=== PATIENT | female | born 1970 | race Two or more races ===

== ENCOUNTER → 2017-05-10 | Outpatient (CLI) | payer OTHER | END | disposition home or self-care (01) | LOC: CFH 08:45 | PROVIDERS: ATTEND Nurse Practitioner | DX: Z12.31 Encounter for screening mammogram for malignant neoplasm of breast (principal); Z80.3 Family history of malignant neoplasm of breast | CPT/HCPCS: 77063; 77067 ==

== ENCOUNTER 2017-12-10 07:21 | Emergency (ER) | payer OTHER ==
[~2017-12-10] VITALS: Ht 162.6 cm; Wt 62.8 kg
[2017-12-10] MEDS ORDERED: SODIUM CHLORIDE FLUSH 10ML SYR IVF ONE (08:30)
[2017-12-10] MEDS ORDERED: SODIUM CHLORIDE 0.9% 1,000ML IVBOLUS ONE (08:30)
[2017-12-10] MEDS ORDERED: ONDANSETRON 2MG/ML, 2ML IVPush ONE ×2 (08:30→13:00)
[2017-12-10] MEDS ORDERED: ONDANSETRON 2MG/ML, 2ML ONE ×2 (08:45→13:05)
[2017-12-10 09:30] LABS: BASOPHILS # (AUTO) 0.04 x10^3/uL (0-0.1); BASOPHILS % (AUTO) 0 % (0-1); EOSINOPHILS # (AUTO) 0.07 x10^3/uL (0-0.4); EOSINOPHILS % (AUTO) 0 % (1-7); LYMPHOCYTES # (AUTO) 1.08 x10^3/uL (1-3.4); LYMPHOCYTES % (AUTO) 6 % (22-44); MD NO; MEAN CORPUSCULAR HEMOGLOBIN 31.6 pg (27.0-34.8); MEAN CORPUSCULAR HGB CONC 34.5 g/dL (32.4-35.8); MEAN CORPUSCULAR VOLUME 91.6 fL (80-100); MEAN PLATELET VOLUME 7.8 fL (7.4-10.4); MONOCYTES # (AUTO) 0.56 x10^3/uL (0.2-0.8); MONOCYTES % (AUTO) 3 % (2-9); NEUTROPHILS # (AUTO) 15.14 x10^3/uL (1.8-6.8); NEUTROPHILS % (AUTO) 90 % (42-75); PLATELET COUNT 272 x10^3/uL (130-400); RED BLOOD COUNT 4.85 x10^6/uL (3.82-5.3); RED CELL DISTRIBUTION WIDTH 12.4 % (9.6-15.2)
[2017-12-10 09:34] LABS: INTERNATIONAL NORMALIZED RATIO 1.01 (0.93-1.1); PROTHROMBIN TIME 10.4 Seconds (9.6-11.5)
[2017-12-10 09:37] LABS: ALANINE AMINOTRANSFERASE 29 U/L (12-78); ALBUMIN 4.2 g/dL (3.4-5.0); ANION GAP 7 mmol/L (5-15); CALCIUM 8.8 mg/dL (8.5-10.1); CHLORIDE 109 mmol/L (98-107); CREATININE 0.72 mg/dL (0.55-1.02)
[2017-12-10 09:40] LABS: ALKALINE PHOSPHATASE 78 U/L (45-117); BILIRUBIN,TOTAL 0.8 mg/dL (0.2-1.0); TOTAL PROTEIN 7.9 g/dL (6.4-8.2)
[2017-12-10 09:55] LABS: HCG UR SG 1.033 (1.003-1.030); MICROSCOPIC AUTO
[2017-12-10 10:00] LABS: CULTURE INDICATED? NO
[2017-12-10] MEDS ORDERED: OMNIPAQUE 350 MG/ML, 100ML BOTTLE ONE ×2 (11:00→13:44)
[2017-12-10] MEDS ORDERED: HYDROmorphone 2 MG/ML, 1ML IVPush PRN (13:00)
[2017-12-10] MEDS ORDERED: METRONIDAZOLE PMX 500MG/100ML 100 ML IVPB ONE (13:00)
[2017-12-10] MEDS ORDERED: CIPROFLOXACIN/PMX 400MG/200ML 100 ML IVPB ONE (13:00)
[2017-12-10] MEDS ORDERED: CIPROFLOXACIN/PMX 400MG/200ML 200 ML ONE (13:06)
[2017-12-10] MEDS ORDERED: HYDROmorphone 2 MG/ML, 1ML ONE (13:07)
[2017-12-10] MEDS ORDERED: METRONIDAZOLE PMX 500MG/100ML 100 ML ONE (13:07)
[2017-12-10 15:22] VITALS: BP 116/72
== END 2017-12-10 15:24 | disposition home or self-care (01) ==
LOC: ED 08:38
DX: A09 Infectious gastroenteritis and colitis, unspecified (principal)
CPT/HCPCS: 36415; 74175; 74177; 80053; 81001; 81025; 83690; 85025; 85610; 87040; 93005; 96361; 96365; 96367; 96375; 96376; 99285; J0744; J1170; J2405; J7030; Q9967

== ENCOUNTER 2018-10-02 15:02 | Outpatient (CLI) | payer OTHER | END 2018-10-02 23:59 | disposition home or self-care (01) | LOC: RAD 15:02 | PROVIDERS: ATTEND Family Medicine | DX: J01.30 Acute sphenoidal sinusitis, unspecified (principal); J01.01 Acute recurrent maxillary sinusitis; R51 Headache; R50.9 Fever, unspecified | CPT/HCPCS: 70450; 70486; 71046 ==

== ENCOUNTER 2019-02-02 14:59 | Outpatient (CLI) | payer OTHER | END 2019-02-02 23:59 | disposition home or self-care (01) | LOC: CFH 14:59 | PROVIDERS: ATTEND Nurse Practitioner | DX: M50.322 Other cervical disc degeneration at C5-C6 level (principal); M48.02 Spinal stenosis, cervical region | CPT/HCPCS: 72141 ==

== ENCOUNTER → 2019-10-13 | Outpatient (CLI) | payer OTHER ==
[~2019-10-13] MED LIST: GADOTERATE 7.5 MMOL/15 ML SYR ONE
== END | disposition home or self-care (01) ==
LOC: RAD 10:09
PROVIDERS: ATTEND Neurological Surgery
DX: M25.551 Pain in right hip (principal); Z90.710 Acquired absence of both cervix and uterus
CPT/HCPCS: 72197; A9575

== ENCOUNTER 2019-10-29 09:26 | Inpatient (IN) | payer OTHER ==
[~2019-10-29] VITALS: Ht 162.6 cm; Wt 61.7 kg
--- NOTE | 2019-10-29 10:31 | NUR ---
REGULATORY PRODUCT MANAGER: PT TO ROOM FROM LOBBY VIA WHEELCHAIR. BRANDON
[2019-10-29 10:40] LABS: BASOPHILS # (AUTO) 0.02 x10^3/uL (0-0.1); BASOPHILS % (AUTO) 0 % (0-1); EOSINOPHILS # (AUTO) 0.11 x10^3/uL (0-0.4); EOSINOPHILS % (AUTO) 2 % (1-7); LYMPHOCYTES % (AUTO) 23 % (22-44); MD NO; MEAN CORPUSCULAR HEMOGLOBIN 31.8 pg (27.0-34.8); MEAN CORPUSCULAR HGB CONC 34.5 g/dL (32.4-35.8); MEAN CORPUSCULAR VOLUME 91.9 fL (80-100); MEAN PLATELET VOLUME 8.1 fL (7.4-10.4); MONOCYTES # (AUTO) 0.36 x10^3/uL (0.2-0.8); MONOCYTES % (AUTO) 5 % (2-9); NEUTROPHILS # (AUTO) 4.76 x10^3/uL (1.8-6.8); NEUTROPHILS % (AUTO) 70 % (42-75); PLATELET COUNT 239 x10^3/uL (130-400); RED BLOOD COUNT 4.81 x10^6/uL (3.82-5.3); RED CELL DISTRIBUTION WIDTH 12.3 % (9.6-15.2)
[2019-10-29 10:49] LABS: ALANINE AMINOTRANSFERASE 36 U/L (12-78); ALBUMIN 4.1 g/dL (3.4-5.0); ANION GAP 4 mmol/L (5-15); C-REACTIVE PROTEIN, QUANT 0.14 mg/dL (0.02-0.49); CALCIUM 9.5 mg/dL (8.5-10.1); CHLORIDE 110 mmol/L (98-107); CREATININE 0.65 mg/dL (0.55-1.02)
[2019-10-29 10:51] LABS: ALKALINE PHOSPHATASE 91 U/L (45-117); BILIRUBIN,TOTAL 0.6 mg/dL (0.2-1.0); TOTAL PROTEIN 7.4 g/dL (6.4-8.2)
[2019-10-29 11:18] LABS: MICROSCOPIC NOT IND
--- NOTE | 2019-10-29 11:18 | NUR ---
to and from bathroom for ua gait shuffling, slow, standby assist. pain relieved by laying down. sts decr/different sensation in lowers bilat, occasional tingling when sitting too long. epidural 2 weeks ago w improvement. told by lisa to come to ed. new bladder incontinence at home. sts only able to crawl last night. call manfred vss. as
[2019-10-29 11:33] LABS: HCT (SEDRATE) 44.2 % (34.6-47.8)
--- NOTE | 2019-10-29 11:55 | NUR ---
piv est plan for mri pain controlled as long as lying down nad. as
[2019-10-29] MEDS ORDERED: SODIUM CHLORIDE FLUSH 10ML SYR IVF ONE (12:00)
[2019-10-29] MEDS ORDERED: GADOTERATE 7.5 MMOL/15 ML SYR ONE (12:20)
--- NOTE | 2019-10-29 12:25 | NUR ---
pt to mri. as
--- NOTE | 2019-10-29 12:54 | NUR ---
REPORT RECEIVED, CARE ASSUMED
--- NOTE | 2019-10-29 13:00 | NUR ---
CONTACT WITH PT. PT LAYING ON GURNEY. NO ACUTE DISTRESS NOTED. "FEEL BETTER LAYING DOWN" PT AWARE OF WAITING FOR MD RE-EVAL. NO NEEDS EXPRESSED AT THIS TIME.
--- NOTE | 2019-10-29 13:05 | NUR ---
REPORT TO TORRES TOVAR.
--- NOTE | 2019-10-29 13:56 | NUR ---
PT TO MRI VIA [facility].
--- NOTE | 2019-10-29 15:12 | NUR ---
PT RETURN TO ROOM, STATES "IT WAS LONG AND IT HURT" DISCUSSED DR STAUFFER [facility] HAS BEEN IN ER TO EVAL HER. UNDERSTANDING VERBALIZED. DR STAUFFER NOTIFED OF PT RETURN TO ROOM. NO NEEDS EXPRESSED BY PT AT THIS TIME.
--- NOTE | 2019-10-29 16:25 | NUR ---
REPORT CALLED TO RADHA TOVAR. POC DISCUSSED.
[2019-10-29 16:55] LABS: INTERNATIONAL NORMALIZED RATIO 0.99 (0.93-1.1); PROTHROMBIN TIME 10.2 Seconds (9.6-11.5)
[2019-10-29] MEDS ORDERED: METHOCARBAMOL 500 MG TABLET PO PRN (17:00)
[2019-10-29] MEDS ORDERED: ACETAMINOPHEN 325 MG TABLET PO PRN (17:00)
[2019-10-29] MEDS ORDERED: BISACODYL 10 MG SUPP PR PRN (17:00)
[2019-10-29] MEDS ORDERED: METOCLOPRAMIDE 5 MG/ML, 2ML IVPush PRN (17:00)
[2019-10-29] MEDS ORDERED: hydrALAzine 20 MG/ML, 1ML IVPush PRN (17:00)
[2019-10-29] MEDS ORDERED: ONDANSETRON ODT 4 MG PO PRN (17:00)
[2019-10-29] MEDS ORDERED: OXYcodone IR 5MG TABLET PO PRN (17:00)
[2019-10-29] MEDS ORDERED: morphine SULFATE 10 MG/ML, 1ML IVPush PRN (17:00)
[2019-10-29] MEDS ORDERED: POLYETHYLENE GLYCOL 17 GM PACKET PO PRN (17:00)
[2019-10-29 17:07] VITALS: BP 120/79
[2019-10-29] MEDS: LACTATED RINGERS 1,000 ML IV SCH (18:00)
[2019-10-29 18:35] VITALS: BP 125/83
[2019-10-29] MEDS ORDERED: GABA300S PO (18:58)
[2019-10-29] MEDS: FAMOTIDINE 20 MG TABLET PO SCH (20:43)
[2019-10-29] MEDS: ONDANSETRON 2MG/ML, 2ML IVPush PRN (20:43)
[2019-10-29] MEDS ORDERED: PROP10TA51 PO (23:51)
[2019-10-30 00:35] VITALS: BP 102/65
[2019-10-30] MEDS: ONDANSETRON 2MG/ML, 2ML IVPush PRN (04:14)
[2019-10-30 04:39] LABS: BASOPHILS # (AUTO) 0.03 x10^3/uL (0-0.1); BASOPHILS % (AUTO) 1 % (0-1); EOSINOPHILS # (AUTO) 0.19 x10^3/uL (0-0.4); EOSINOPHILS % (AUTO) 3 % (1-7); LYMPHOCYTES # (AUTO) 2.26 x10^3/uL (1-3.4); LYMPHOCYTES % (AUTO) 37 % (22-44); MD NO; MEAN CORPUSCULAR HEMOGLOBIN 31.6 pg (27.0-34.8); MEAN CORPUSCULAR HGB CONC 34.6 g/dL (32.4-35.8); MEAN CORPUSCULAR VOLUME 91.4 fL (80-100); MEAN PLATELET VOLUME 8.4 fL (7.4-10.4); MONOCYTES # (AUTO) 0.42 x10^3/uL (0.2-0.8); MONOCYTES % (AUTO) 7 % (2-9); NEUTROPHILS # (AUTO) 3.17 x10^3/uL (1.8-6.8); NEUTROPHILS % (AUTO) 52 % (42-75); PLATELET COUNT 206 x10^3/uL (130-400); RED BLOOD COUNT 4.23 x10^6/uL (3.82-5.3); RED CELL DISTRIBUTION WIDTH 12.1 % (9.6-15.2)
[2019-10-30 04:45] LABS: ALBUMIN 3.1 g/dL (3.4-5.0); ANION GAP 4 mmol/L (5-15); CALCIUM 8.6 mg/dL (8.5-10.1); CHLORIDE 109 mmol/L (98-107)
[2019-10-30 04:48] LABS: ALANINE AMINOTRANSFERASE 23 U/L (12-78); ALKALINE PHOSPHATASE 77 U/L (45-117); BILIRUBIN,TOTAL 0.4 mg/dL (0.2-1.0); CREATININE 0.68 mg/dL (0.55-1.02)
[2019-10-30] MEDS: LACTATED RINGERS 1,000 ML IV SCH ×2 (05:45→19:40)
[2019-10-30 06:55] VITALS: BP 102/69
[2019-10-30] MEDS: FAMOTIDINE 20 MG TABLET PO SCH ×2 (07:38→21:41)
[2019-10-30] MEDS ORDERED: SENNA/DOCUSATE TABLET PO SCH (09:00)
[2019-10-30 12:45] VITALS: BP 99/65
[2019-10-30] MEDS ORDERED: EPHEDRINE 50 MG/ML, 1ML IVPush PRN (15:30)
[2019-10-30] MEDS ORDERED: hydrALAzine 20 MG/ML, 1ML IV PRN (15:30)
[2019-10-30] MEDS ORDERED: FENTANYL PF 100 MCG/2ML IV PRN (15:30)
[2019-10-30] MEDS ORDERED: OXYcodone 5 MG/5 ML ORAL.SOL UDC PO PRN (15:30)
[2019-10-30] MEDS ORDERED: PROMETHAZINE 25 MG/ML, 1ML IVPush PRN (15:30)
[2019-10-30] MEDS ORDERED: MEPERIDINE/PF 25MG/0.5ML IVPush PRN (15:30)
[2019-10-30] MEDS ORDERED: ONDANSETRON 2MG/ML, 2ML IVPush PRN (15:30)
[2019-10-30] MEDS ORDERED: LABETALOL 5MG/ML, 20ML IV PRN (15:30)
[2019-10-30] MEDS ORDERED: BUPIVACAINE/PF 0.25% ONE (16:06)
[2019-10-30] MEDS ORDERED: BACITRACIN 50,000 UNIT ONE (16:07)
[2019-10-30] MEDS ORDERED: EPINEPHRINE 1 MG/ML, 1ML ONE (16:07)
[2019-10-30] MEDS ORDERED: FENTANYL PF 250 MCG/5ML ONE (16:08)
[2019-10-30] MEDS ORDERED: MIDAZOLAM 1 MG/ML, 2ML ONE (16:08)
[2019-10-30] MEDS ORDERED: KETOROLAC 30 MG/1 ML ONE (17:44)
[2019-10-30] MEDS ORDERED: LIDOCAINE-MPF 2% ,5ML ONE (17:44)
[2019-10-30] MEDS ORDERED: EPHEDRINE 50 MG/ML, 1ML ONE (18:36)
[2019-10-30] MEDS ORDERED: CEFAZOLIN 1,000 MG ONE (18:37)
[2019-10-30] MEDS ORDERED: PROPOFOL 10 MG/ML, 20ML ONE (18:37)
[2019-10-30] MEDS ORDERED: ONDANSETRON 2MG/ML, 2ML ONE (18:37)
[2019-10-30] MEDS ORDERED: SUCCINYLCHOLINE 20 MG/ML, 10ML ONE (18:37)
[2019-10-30] MEDS ORDERED: DEXAMETHASONE 4 MG/ML, 1ML ONE (18:37)
[2019-10-30] MEDS ORDERED: VANCOMYCIN 1,000 MG ONE (18:52)
[2019-10-30] MEDS ORDERED: VANCOMYCIN 1,000 MG IVPush ONE (18:53)
[2019-10-30] MEDS ORDERED: PROMETHAZINE 25 MG/ML, 1ML ONE (19:23)
[2019-10-30] MEDS ORDERED: FENTANYL PF 100 MCG/2ML ONE (19:23)
[2019-10-30] MEDS ORDERED: HYDROmorphone 1 MG/ML, 1ML INJ ONE (19:23)
[2019-10-30] MEDS: HYDROmorphone 1 MG/ML, 1ML INJ IVPush PRN ×2 (19:42→19:50)
[2019-10-30 20:45] VITALS: BP 109/73
[2019-10-30] MEDS ORDERED: DIPHENHYDRAMINE 25 MG CAPSULE PO PRN (21:00)
[2019-10-30] MEDS ORDERED: CEFAZOLIN PMX 1GM/50ML 50 ML IVPB SCH (21:00)
[2019-10-30] MEDS ORDERED: METHOCARBAMOL 1,000 MG in DEXTROSE 5% 100 ML IV ONE (21:00)
[2019-10-30] MEDS ORDERED: METOCLOPRAMIDE 10MG TABLET PO PRN (21:30)
[2019-10-30] MEDS ORDERED: DIPHENHYDRAMINE 50 MG/ML, 1ML IV PRN (21:30)
[2019-10-30] MEDS ORDERED: BISACODYL 10 MG SUPP PR PRN (21:30)
[2019-10-30] MEDS: DEXAMETHASONE 4 MG TABLET PO SCH (21:30)
[2019-10-30] MEDS ORDERED: POLYETHYLENE GLYCOL 17 GM PACKET PO PRN (21:30)
[2019-10-30] MEDS: NS + 20MEQ KCL 1,000 ML IV SCH (21:41)
[2019-10-30] MEDS: DEXAMETHASONE 4 MG/ML, 1ML IVPush SCH (21:42)
[2019-10-31] VITALS (9 sets, daily range): BP systolic 81–112; BP diastolic 57–74
[2019-10-31] MEDS: DEXAMETHASONE 4 MG TABLET PO SCH ×3 (00:24→15:30)
[2019-10-31] MEDS: OXYcodone IR 5MG TABLET PO PRN ×4 (01:38→21:40)
[2019-10-31] MEDS: CEFAZOLIN PMX 1GM/50ML 50 ML IVPB SCH ×2 (03:29→13:30)
[2019-10-31] MEDS: DEXAMETHASONE 4 MG/ML, 1ML IVPush SCH ×3 (03:29→18:13)
[2019-10-31] MEDS: NS + 20MEQ KCL 1,000 ML IV SCH (04:23)
[2019-10-31] MEDS: LACTATED RINGERS 1,000 ML IV SCH (04:41)
[2019-10-31] MEDS: METHOCARBAMOL 750 MG in DEXTROSE 5% 100 ML IV SCH ×2 (05:13→18:11)
[2019-10-31 05:16] LABS: ANION GAP 5 mmol/L (5-15); CALCIUM 9.5 mg/dL (8.5-10.1); CHLORIDE 109 mmol/L (98-107)
[2019-10-31 05:37] LABS: BASOPHILS % (AUTO) 0 % (0-1); EOSINOPHILS # (AUTO) 0.08 x10^3/uL (0-0.4); EOSINOPHILS % (AUTO) 1 % (1-7); LYMPHOCYTES # (AUTO) 0.52 x10^3/uL (1-3.4); LYMPHOCYTES % (AUTO) 5 % (22-44); MD NO; MEAN CORPUSCULAR HEMOGLOBIN 31.1 pg (27.0-34.8); MEAN CORPUSCULAR HGB CONC 33.7 g/dL (32.4-35.8); MEAN CORPUSCULAR VOLUME 92.3 fL (80-100); MEAN PLATELET VOLUME 8.2 fL (7.4-10.4); MONOCYTES # (AUTO) 0.11 x10^3/uL (0.2-0.8); MONOCYTES % (AUTO) 1 % (2-9); NEUTROPHILS # (AUTO) 9.07 x10^3/uL (1.8-6.8); NEUTROPHILS % (AUTO) 93 % (42-75); PLATELET COUNT 219 x10^3/uL (130-400); RED BLOOD COUNT 4.08 x10^6/uL (3.82-5.3); RED CELL DISTRIBUTION WIDTH 12.3 % (9.6-15.2)
[2019-10-31] MEDS: SODIUM CHLORIDE 0.9% 500 ML IV SCH ×2 (08:00→13:00)
[2019-10-31] MEDS: FAMOTIDINE 20 MG TABLET PO SCH ×2 (08:30→21:40)
[2019-10-31] MEDS: GABAPENTIN 300 MG CAPSULE PO SCH ×3 (08:36→21:39)
[2019-10-31] MEDS ORDERED: PROPRANOLOL 20 MG TABLET PO SCH (09:00)
[2019-10-31] MEDS ORDERED: SODIUM CHLORIDE 0.9% 500 ML IV ONE ×3 (11:30)
[2019-11-01] MEDS: METHOCARBAMOL 750 MG in DEXTROSE 5% 100 ML IV SCH ×3 (01:54→18:16)
[2019-11-01] MEDS: OXYcodone IR 5MG TABLET PO PRN ×5 (01:54→18:17)
[2019-11-01 01:57] VITALS: BP 108/67
[2019-11-01 04:20] LABS: BASOPHILS # (AUTO) 0.02 x10^3/uL (0-0.1); BASOPHILS % (AUTO) 0 % (0-1); EOSINOPHILS % (AUTO) 0 % (1-7); LYMPHOCYTES % (AUTO) 9 % (22-44); MD NO; MEAN CORPUSCULAR HEMOGLOBIN 31.1 pg (27.0-34.8); MEAN CORPUSCULAR HGB CONC 33.5 g/dL (32.4-35.8); MEAN CORPUSCULAR VOLUME 92.8 fL (80-100); MEAN PLATELET VOLUME 8.1 fL (7.4-10.4); MONOCYTES # (AUTO) 0.63 x10^3/uL (0.2-0.8); MONOCYTES % (AUTO) 4 % (2-9); NEUTROPHILS # (AUTO) 14.33 x10^3/uL (1.8-6.8); NEUTROPHILS % (AUTO) 87 % (42-75); PLATELET COUNT 217 x10^3/uL (130-400); RED BLOOD COUNT 3.86 x10^6/uL (3.82-5.3); RED CELL DISTRIBUTION WIDTH 12.2 % (9.6-15.2)
[2019-11-01 04:33] LABS: ANION GAP 4 mmol/L (5-15); CALCIUM 8.7 mg/dL (8.5-10.1); CHLORIDE 109 mmol/L (98-107)
[2019-11-01 04:34] LABS: CREATININE 0.66 mg/dL (0.55-1.02)
[2019-11-01 07:57] VITALS: BP 97/63
[2019-11-01] MEDS: GABAPENTIN 300 MG CAPSULE PO SCH ×3 (08:25→20:56)
[2019-11-01] MEDS: FAMOTIDINE 20 MG TABLET PO SCH ×2 (08:25→20:56)
[2019-11-01 10:56] VITALS: BP 97/57
[2019-11-01 12:59] VITALS: BP 105/61
[2019-11-01] MEDS: SENNA/DOCUSATE TABLET PO PRN (18:17)
[2019-11-01 19:35] VITALS: BP 93/59
[2019-11-02] MEDS: OXYcodone IR 5MG TABLET PO PRN ×6 (00:15→22:03)
[2019-11-02 01:08] VITALS: BP 98/62
[2019-11-02] MEDS: METHOCARBAMOL 750 MG in DEXTROSE 5% 100 ML IV SCH (01:52)
[2019-11-02 07:23] VITALS: BP 95/67
[2019-11-02 08:34] LABS: MEAN CORPUSCULAR HEMOGLOBIN 31.3 pg (27.0-34.8); MEAN CORPUSCULAR HGB CONC 33.7 g/dL (32.4-35.8); MEAN CORPUSCULAR VOLUME 92.9 fL (80-100); MEAN PLATELET VOLUME 7.9 fL (7.4-10.4); PLATELET COUNT 223 x10^3/uL (130-400); RED BLOOD COUNT 4.15 x10^6/uL (3.82-5.3); RED CELL DISTRIBUTION WIDTH 12.5 % (9.6-15.2)
[2019-11-02 08:36] LABS: ALBUMIN 3.1 g/dL (3.4-5.0); ANION GAP 4 mmol/L (5-15); CALCIUM 8.8 mg/dL (8.5-10.1); CHLORIDE 104 mmol/L (98-107)
[2019-11-02 08:40] LABS: ALANINE AMINOTRANSFERASE 34 U/L (12-78); ALKALINE PHOSPHATASE 82 U/L (45-117); BILIRUBIN,TOTAL 0.5 mg/dL (0.2-1.0); CREATININE 0.58 mg/dL (0.55-1.02); TOTAL PROTEIN 6.2 g/dL (6.4-8.2)
[2019-11-02] MEDS: GABAPENTIN 300 MG CAPSULE PO SCH ×3 (09:37→20:16)
[2019-11-02] MEDS: FAMOTIDINE 20 MG TABLET PO SCH ×2 (09:37→20:16)
[2019-11-02 09:46] LABS: BASOPHILS # (AUTO) 0.04 x10^3/uL (0-0.1); BASOPHILS % (AUTO) 0 % (0-1); EOSINOPHILS # (AUTO) 0.09 x10^3/uL (0-0.4); EOSINOPHILS % (AUTO) 1 % (1-7); LYMPHOCYTES # (AUTO) 2.98 x10^3/uL (1-3.4); LYMPHOCYTES % (AUTO) 32 % (22-44); MD SCAN; MONOCYTES # (AUTO) 0.79 x10^3/uL (0.2-0.8); MONOCYTES % (AUTO) 8 % (2-9); NEUTROPHILS # (AUTO) 5.53 x10^3/uL (1.8-6.8); NEUTROPHILS % (AUTO) 59 % (42-75)
[2019-11-02] MEDS: ONDANSETRON 2MG/ML, 2ML IV PRN (13:37)
[2019-11-02 13:49] VITALS: BP 92/56
[2019-11-02] MEDS ORDERED: METHOCARBAMOL 500 MG TABLET ONE (14:12)
[2019-11-02 19:42] VITALS: BP 92/55
[2019-11-02] MEDS: METHOCARBAMOL 500 MG TABLET PO PRN (20:16)
[2019-11-02] MEDS: SENNA/DOCUSATE TABLET PO PRN (20:16)
[2019-11-02] MEDS ORDERED: METHOCARBAMOL 500 MG TABLET PO PRN (21:30)
[2019-11-03 00:47] VITALS: BP 99/65
[2019-11-03] MEDS: METHOCARBAMOL 500 MG TABLET PO PRN ×2 (04:45→15:40)
[2019-11-03 07:13] VITALS: BP 99/67
[2019-11-03] MEDS: OXYcodone IR 5MG TABLET PO PRN ×3 (07:42→15:40)
[2019-11-03] MEDS: FAMOTIDINE 20 MG TABLET PO SCH (08:00)
[2019-11-03] MEDS: GABAPENTIN 300 MG CAPSULE PO SCH ×2 (08:00→15:40)
[2019-11-03 12:48] VITALS: BP 101/65
[2019-11-03] MEDS: ONDANSETRON 2MG/ML, 2ML IV PRN (13:24)
== END 2019-11-03 16:06 | disposition home or self-care (01) | DRG 520 ==
LOC: ED 10:16 → SUATTDRO 14:18 → 4NE 16:32 → ED 16:32 → 4NE 16:41 → 4WST 10-31 14:24
PROVIDERS: ADMIT Internal Medicine; ATTEND Internal Medicine
PROC: 01NB0ZZ Release Lumbar Nerve, Open Approach (ICD-10-PCS; 2019-10-30)
PROC: 00BY0ZZ Excision of Lumbar Spinal Cord, Open Approach (ICD-10-PCS; principal; 2019-10-30 17:30)
DX: M48.061 Spinal stenosis, lumbar region without neurogenic claudication (principal); E03.9 Hypothyroidism, unspecified; E53.8 Deficiency of other specified B group vitamins; E55.9 Vitamin D deficiency, unspecified; I95.81 Postprocedural hypotension; J45.909 Unspecified asthma, uncomplicated; M48.02 Spinal stenosis, cervical region; M51.16 Intervertebral disc disorders with radiculopathy, lumbar region; M71.30 Other bursal cyst, unspecified site; M79.7 Fibromyalgia; R32 Unspecified urinary incontinence; Z79.899 Other long term (current) drug therapy; Z90.710 Acquired absence of both cervix and uterus; Z20.828 Contact with and (suspected) exposure to other viral communicable diseases; Z88.6 Allergy status to analgesic agent; Z88.8 Allergy status to other drugs, medicaments and biological substances
CPT/HCPCS: 36415; 72100; J3490; 71045; 72141; 72146; 72158; 80048; 80053; 81003; 81025; 82306; 82607; 83735; 84443; 85025; 85610; 85651; 85730; 86140; 86850; 86900; 87015; 87070; 87075; 87102; 87116; 87205; 87206; 87635; 88304; 88305; 88311; 93005; 93306; 93880; G0378; J0171; J0690; J1100; J1170; J1885; J2250; J2405; J2550; J2704; J3010; J3370; J3480; A9575; J0330; J1200; J2270; J2800; J7040; J7120

== ENCOUNTER 2020-02-11 13:55 | Emergency (ER) | payer OTHER ==
[~2020-02-11] VITALS: Ht 162.6 cm; Wt 57.9 kg
[~2020-02-11 13:55] MED LIST changes: +GABA300S PO; -GADOTERATE 7.5 MMOL/15 ML SYR ONE; +PROP10TA51 PO
[2020-02-11 14:59] LABS: BASOPHILS % (AUTO) 0 % (0-1); EOSINOPHILS % (AUTO) 1 % (1-7); LYMPHOCYTES % (AUTO) 30 % (22-44); MEAN CORPUSCULAR HEMOGLOBIN 31.4 pg (27.0-34.8); MEAN CORPUSCULAR HGB CONC 34.7 g/dL (32.4-35.8); MEAN PLATELET VOLUME 7.8 fL (7.4-10.4); MONOCYTES % (AUTO) 6 % (2-9); NEUTROPHILS % (AUTO) 63 % (42-75); PLATELET COUNT 259 x10^3/uL (130-400); RED BLOOD COUNT 5.26 x10^6/uL (3.82-5.3)
--- NOTE | 2020-02-11 15:00 | NUR ---
Pt states she's fainted 3 times in the last 2 days. Twice yesterday and once today. Pt states yesterday she hit her head when she fainted, has been mildly nauseous since. Pt states mild BLISS as well. Pt states she's under significant stress from work and personal life. Pt connected to all monitors, NADN, call light in reach.
[2020-02-11 15:06] LABS: ALANINE AMINOTRANSFERASE 54 U/L (12-78); ALBUMIN 4.7 g/dL (3.4-5.0); ANION GAP 5 mmol/L (5-15); CHLORIDE 106 mmol/L (98-107); CREATININE 0.81 mg/dL (0.55-1.02)
[2020-02-11 15:14] LABS: MD NO
[2020-02-11 15:16] LABS: ALKALINE PHOSPHATASE 98 U/L (45-117); BILIRUBIN,TOTAL 0.8 mg/dL (0.2-1.0); TOTAL PROTEIN 8.4 g/dL (6.4-8.2)
--- NOTE | 2020-02-11 15:19 | NUR ---
Pt to and from imaging.
--- NOTE | 2020-02-11 16:14 | NUR ---
Pt remains in bed, condition unchanged.
--- NOTE | 2020-02-11 16:37 | NUR ---
ERP back to bedside to update pt on POC.
[2020-02-11 16:46] VITALS: BP 122/81
== END 2020-02-11 16:54 | disposition home or self-care (01) ==
LOC: ED 16:30
DX: S09.90XA Unspecified injury of head, initial encounter (principal); R55 Syncope and collapse; I49.3 Ventricular premature depolarization; R00.0 Tachycardia, unspecified; I51.7 Cardiomegaly; E03.9 Hypothyroidism, unspecified; J45.909 Unspecified asthma, uncomplicated; X58.XXXA Exposure to other specified factors, initial encounter; Y93.89 Activity, other specified; Y92.89 Other specified places as the place of occurrence of the external cause; Y99.8 Other external cause status
CPT/HCPCS: 36415; 70450; 71045; 80053; 83735; 84443; 85025; 85379; 93005; 99285

== ENCOUNTER → 2020-03-11 | Outpatient (CLI) | payer OTHER ==
[~2020-03-11] MED LIST changes: +GADOTERATE 5 MMOL/10 ML VIAL ONE
== END | disposition home or self-care (01) ==
LOC: CFH 08:27
PROVIDERS: ATTEND Registered Nurse Registered Nurse First Assistant
DX: M51.16 Intervertebral disc disorders with radiculopathy, lumbar region (principal); M47.26 Other spondylosis with radiculopathy, lumbar region; M48.061 Spinal stenosis, lumbar region without neurogenic claudication
CPT/HCPCS: 72100; 72158; A9575

== ENCOUNTER → 2020-03-31 | Outpatient (CLI) | payer OTHER ==
[~2020-03-31] MED LIST changes: -GADOTERATE 5 MMOL/10 ML VIAL ONE
== END | disposition home or self-care (01) ==
LOC: CARD 09:03
PROVIDERS: ATTEND Psychiatry & Neurology Neurology
DX: R55 Syncope and collapse (principal)
CPT/HCPCS: 95819